=== PATIENT | male | born 1965 | race Two or more races ===

== ENCOUNTER 2016-07-04 04:47 | Emergency (ER) | payer OTHER ==
[2016-07-04] MEDS ORDERED: IBUPROFEN 600 MG TABLET ONE (05:28)
[2016-07-04] MEDS ORDERED: ACETAMINOPHEN 325 MG TABLET ONE (05:28)
[2016-07-04] MEDS ORDERED: DEXAMETHASONE 4 MG TABLET ONE ×2 (05:28→05:34)
== END 2016-07-04 06:04 | disposition home or self-care (01) ==
LOC: ED 04:47
DX: J02.9 Acute pharyngitis, unspecified (principal); I10 Essential (primary) hypertension; E11.9 Type 2 diabetes mellitus without complications; Z79.84 Long term (current) use of oral hypoglycemic drugs
CPT/HCPCS: 87880; 99282; 99283; A9270 ×4